=== PATIENT | female | born 1995 | race Caucasian/White ===

== ENCOUNTER 2021-08-15 13:27 | Outpatient (CLI) | payer OTHER | END 2021-08-15 13:28 | disposition home or self-care (01) | LOC: BICULT 13:27 | PROVIDERS: ATTEND Family Medicine | DX: Z34.82 Encounter for supervision of other normal pregnancy, second trimester (principal); Z3A.20 20 weeks gestation of pregnancy | CPT/HCPCS: 76805 ==